=== PATIENT | female | born 1985 | race Caucasian/White ===

== ENCOUNTER 2017-04-12 09:38 | Emergency (ER) | payer OTHER ==
[~2017-04-12] VITALS: Ht 170.2 cm; Wt 74.2 kg
[~2017-04-12 09:38] MED LIST: AMOX875 PO
[2017-04-12 09:53] VITALS: BP 121/77; PULSE 75; RESP 16; TEMP 97.4
[2017-04-12] MEDS ORDERED: SODIUM CHLOR 0.9% 1000 ML INJ 1,000 ML IV SCH (10:16)
--- NOTE | 2017-04-12 10:16 | PD ---
HPI Chief Complaint: GI Complaint Time Seen by Provider: 10:13 Travel History International Travel<30 days: No Contact w/Intl Traveler<30days: No Traveled to known affect area: No History of Present Illness HPI c/o upper abdominal pain, rated about a 7 out of 10 to as much as 10 out of 10. Associated with nausea and vomiting which started last night. pt states the last episode of emesis that she saw some red flecks which she has seen before when she vomits blood. Patient states that this is her usual symptoms whenever she has a flareup of her gastroparesis or ulcer disease. No known drug allergy Patient has a past medical history significant for gastroparesis ulcer disease GERD and multiple endoscopies. PFSH Past Medical History Gastrointestinal Disorders: Yes (GASTROPARESIS) GERD: Yes Immunizations Current: Yes Ulcer: Yes ?: Not LMP: 2 weeks ago : 2 Para: 1 Miscarriage: 1 : 0 Past Surgical History Other Surgery: Yes (ENDOSCOPIES X 9) Social History Alcohol Use: Yes (rarely) Tobacco Use: No Substance Use: No Allergies-Medications (Allergen,Severity, Reaction): Coded Allergies: No Known Allergies (Unverified Adverse Reaction, Unknown, 04/12/17) Reported Meds & Prescriptions Reported Meds & Active Scripts Active No Active Prescriptions or Reported Medications Review of Systems General / Constitutional: No: Fever Eyes: No: Visual changes HENT: No: Headaches Cardiovascular: No: Chest Pain or Discomfort Respiratory: No: Shortness of Breath Gastrointestinal: Positive: Nausea, Vomiting, Abdominal Pain Genitourinary: No: Dysuria Musculoskeletal: No: Pain Skin: No Rash Neurologic: No: Weakness Psychiatric: No: Depression Endocrine: No: Polydipsia Hematologic/Lymphatic: No: Easy Bruising Physical Exam Narrative GENERAL: SKIN: Warm and dry. HEAD: Atraumatic. Normocephalic. EYES: Pupils equal and round. No scleral icterus. No injection or drainage. ENT: No nasal bleeding or discharge. Mucous membranes pink and moist. NECK: Trachea midline. No JVD. CARDIOVASCULAR: Regular rate and rhythm. RESPIRATORY: No accessory muscle use. Clear to auscultation. Breath sounds equal bilaterally. GASTROINTESTINAL: Abdomen soft, epigastric mildly tender to palpation , nondistended. MUSCULOSKELETAL: Extremities without clubbing, cyanosis, or edema. No obvious deformities. NEUROLOGICAL: Awake and alert. No obvious cranial nerve deficits. Motor grossly within normal limits. Five out of 5 muscle strength in the arms and legs. Normal speech. PSYCHIATRIC: Appropriate mood and affect; insight and judgment normal. Data Data Last Documented VS Vital Signs Date Time Temp Pulse Resp B/P (MAP) Pulse Ox O2 Delivery O2 Flow Rate FiO2 04/12/17 12:16 69 107/65 (79) 100 04/12/17 09:53 97.4 16 Orders Orders Complete Blood Count With Diff (04/12/17 10:16) Comprehensive Metabolic Panel (04/12/17 10:16) Lipase (04/12/17 10:16) Prothrombin Time / Inr (Pt) (04/12/17 10:16) Act Partial Throm Time (Ptt) (04/12/17 10:16) Ct Abd/Pel W/O Iv Contrast (04/12/17 10:16) Iv Access Insert/Monitor (04/12/17 10:16) Ecg Monitoring (04/12/17 10:16) Oximetry (04/12/17 10:16) NPO (04/12/17 10:16) Morphine Inj (Morphine Inj) (04/12/17 10:30) Ondansetron Inj (Zofran Inj) (04/12/17 10:30) Pantoprazole Inj (Protonix Inj) (04/12/17 10:30) Sodium Chlor 0.9% 1000 Ml Inj (Ns 1000 M (04/12/17 10:16) Al-Mag Hy-Si 40-40-4 Mg/Ml Liq (Mag-Al P (04/12/17 10:30) Lidocaine 2% Viscous (Xylocaine 2% Visco (04/12/17 10:30) Metoclopramide Inj (Reglan Inj) (04/12/17 11:45) Promethazine Inj (Phenergan Inj) (04/12/17 11:45) Labs Laboratory Tests Test 04/12/17 10:54 04/12/17 11:38 Prothrombin Time 11.0 SEC Prothromb Time International Ratio 1.1 RATIO Activated Partial Thromboplast Time 23.1 SEC Blood Urea Nitrogen 9 MG/DL Creatinine 0.81 MG/DL Random Glucose 140 MG/DL Total Protein 8.3 GM/DL Albumin 4.0 GM/DL Calcium Level 8.4 MG/DL Alkaline Phosphatase 74 U/L Aspartate Amino Transf (AST/SGOT) 31 U/L Alanine Aminotransferase (ALT/SGPT) 27 U/L Total Bilirubin 0.4 MG/DL Sodium Level 139 MEQ/L Potassium Level 4.3 MEQ/L Chloride Level 108 MEQ/L Carbon Dioxide Level 22.7 MEQ/L Anion Gap 8 MEQ/L Estimat Glomerular Filtration Rate 81 ML/MIN Lipase 173 U/L White Blood Count 23.4 TH/MM3 Red Blood Count 4.04 MIL/MM3 Hemoglobin 13.7 GM/DL Hematocrit 37.6 % Mean Corpuscular Volume 93.1 FL Mean Corpuscular Hemoglobin 33.9 PG Mean Corpuscular Hemoglobin Concent 36.5 % Red Cell Distribution Width 12.6 % Platelet Count 256 TH/MM3 Mean Platelet Volume 8.1 FL Neutrophils (%) (Auto) 87.0 % Lymphocytes (%) (Auto) 7.7 % Monocytes (%) (Auto) 3.2 % Eosinophils (%) (Auto) 0.1 % Basophils (%) (Auto) 2.0 % Neutrophils # (Auto) 20.4 TH/MM3 Lymphocytes # (Auto) 1.8 TH/MM3 Monocytes # (Auto) 0.7 TH/MM3 Eosinophils # (Auto) 0.0 TH/MM3 Basophils # (Auto) 0.5 TH/MM3 CBC Comment AUTO DIFF Differential Comment AUTO DIFF CONFIRMED MDM Medical Decision Making Medical Screen Exam Complete: Yes Emergency Medical Condition: Yes Medical Record Reviewed: Yes Differential Diagnosis Perforated ulcer versus ulcer disease versus dyspepsia versus hepatitis versus pancreatitis versus colitis versus diverticulitis Narrative Course Patient has leukocytosis of 23,000, no anemia, normal platelet count. Does show mild neutrophilia/left shift of 87% Coagulation profile is within normal limits Complete metabolic profile shows normal electrolytes, normal kidney function, normal liver function tests, normal lipase. CT scan shows Peptic ulcer disease is most likely diagnostic at this present time, patient is now tolerating p.o., she has been resting comfortably. And is currently awaiting the CT results. If the CT result is negative for any free air or any evidence of SBO or ileus patient will be discharged home. With the recommendation to follow-up with her primary and specialist. AT 1255 CT ABD/PELVIS PER RADIOLOGIST no free fluid no free air, hiatal hernia, and thickening of the distal esophagus seen circumferentially suspected for esophagitis. Diagnosis Primary Impression: Dyspeptic syndrome Additional Impression: Hiatal hernia with GERD and esophagitis Referrals: Azeem Sharp MD OR YOUR OWN TIRE MAKER FOR FURTHER CARE OF YOUR HIATAL HERNIA AND ESOPHAGITIS Patient Instructions: Esophagitis (ED), General Instructions, Hiatal Hernia (ED ) Scripts Promethazine Supp (Phenergan Supp) 25 Mg Supp 25 MG RECTAL Q6H Y for NAUSEA OR VOMITING, #6 SUPP 0 Refills Prov: Joel Al MD 04/12/17 Sucralfate (Carafate) 1 Gram Tab 1 GM PO TID for Ulcer Prevention, #90 TAB 0 Refills On empty stomach Prov: Joel Al MD 04/12/17 Lansoprazole (Prevacid) 30 Mg Capdr 30 MG PO DAILY for 30 Days, #30 CAP 3 Refills Prov: Joel Al MD 04/12/17 Disposition: 01 DISCHARGE HOME Condition: Stable Joel Al MD Apr 12, 2017 10:16
[2017-04-12] MEDS ORDERED: ONDANSETRON HCL 4 MG/2 ML VIAL IVP ONE (10:30)
[2017-04-12] MEDS ORDERED: ALUMINUM/MAGNESIUM/SIMETH 30 ML CUP PO ONE (10:30)
[2017-04-12] MEDS ORDERED: LIDOCAINE VISCOUS 2% SOLN 15 ML UDC PO ONE (10:30)
[2017-04-12] MEDS ORDERED: PANTOPRAZOLE SODIUM 40 MG VIAL IVP ONE (10:30)
[2017-04-12] MEDS ORDERED: MORPHINE SULFATE 4 MG/ML INJ IV PUSH ONE (10:30)
[2017-04-12 11:14] LABS: CHLORIDE 108 MEQ/L (98-107); SODIUM (NA) 139 MEQ/L (136-145)
[2017-04-12 11:18] VITALS: BP 113/86; PULSE 66; O2SAT 100
[2017-04-12 11:18] LABS: BICARBONATE 22.7 MEQ/L (21.0-32.0); CALCIUM 8.4 MG/DL (8.5-10.1); GLUCOSE,RANDOM 140 MG/DL (74-106); INTERNATIONAL NORMALIZED RATIO 1.1 RATIO
[2017-04-12 11:19] LABS: BLOOD UREA NITROGEN 9 MG/DL (7-18)
[2017-04-12 11:21] LABS: ALT (GPT) 27 U/L (10-53); AST (GOT) 31 U/L (15-37); CREATININE 0.81 MG/DL (0.50-1.00); GLOMERULAR FILTRATION RATE 81 ML/MIN (>89)
[2017-04-12 11:23] LABS: TOTAL BILIRUBIN ADULT 0.4 MG/DL (0.2-1.0); TOTAL PROTEIN 8.3 GM/DL (6.4-8.2)
[2017-04-12 11:24] LABS: ALKALINE PHOSPHATASE 74 U/L (45-117)
[2017-04-12] MEDS ORDERED: PROMETHAZINE INJ 25 MG/ML VIAL IM ONE (11:45)
[2017-04-12] MEDS ORDERED: METOCLOPRAMIDE HCL 10 MG/2 ML VIAL IV PUSH ONE (11:45)
[2017-04-12 11:47] LABS: AUTOMATED NEUTROPHIL # 20.4 TH/MM3 (1.8-7.7); BASOPHIL # 0.5 TH/MM3 (0-0.2); EOSINOPHIL % 0.1 % (0.0-4.0); HEMATOCRIT 37.6 % (35.0-46.0); HEMOGLOBIN 13.7 GM/DL (11.6-15.3); LYMPH % 7.7 % (9.0-44.0); LYMPHOCYTE # 1.8 TH/MM3 (1.0-4.8); MEAN CELL VOLUME 93.1 FL (80.0-100.0); MEAN CORPUSCULAR HEMOGLOBIN 33.9 PG (27.0-34.0); MEAN PLATELET VOLUME 8.1 FL (7.0-11.0); MONO % 3.2 % (0.0-8.0); MONOCYTE # 0.7 TH/MM3 (0-0.9); PLATELET COUNT 256 TH/MM3 (150-450); RED BLOOD COUNT 4.04 MIL/MM3 (4.00-5.30); RED CELL DISTRIBUTION WIDTH 12.6 % (11.6-17.2); WHITE BLOOD COUNT 23.4 TH/MM3 (4.0-11.0)
[2017-04-12 11:49] LABS: MEAN CORPUSCULAR HGB CONC 36.5 % (32.0-36.0)
[2017-04-12 12:16] VITALS: BP 107/65; PULSE 69; O2SAT 100
--- NOTE | 2017-04-12 12:38 | RADRPT ---
EXAM DATE/TIME: 04/12/2017 12:22 [facility] COMPARISON: No previous studies available for comparison. INDICATIONS : Vomiting blood since last night. Nausea.History of ulcer. Evaluate for free air. ORAL CONTRAST: No oral contrast ingested. RADIATION DOSE: 12.85 CTDIvol (mGy) MEDICAL HISTORY : Ulcers. Gastroparesis. SURGICAL HISTORY : None. ENCOUNTER: Initial ACUITY: 2 days PAIN SCALE: 0/10 LOCATION: abdomen TECHNIQUE: Volumetric scanning of the abdomen and pelvis was performed. Using automated exposure control and ad justment of the mA and/or kV according to patient size, radiation dose was kept as low as reasonably achievable to obtain optimal diagnostic quality images. DICOM format image data is available electro nically for review and comparison. FINDINGS: Liver, gallbladder, kidneys, spleen, pancreas, adrenals, urinary bladder, uterus, ovaries, small mary l and large bowel are unremarkable. No adenopathy or aneurysm. There is no free fluid or free air nahid ntified. The appendix is normal. The osseous structures are intact. There is a sliding hiatal hernia and circumferential thickening of the distal esophagus. CONCLUSION: 1. Hiatal hernia and thickening of the distal esophagus seen circumferentially suspect for esophagiti s. 2. No free fluid or free air are identified. Polo Gupta MD on April 12, 2017 at 12:34 Board Certified Radiologist. This report was verified electronically.
[2017-04-12] MEDS ORDERED: PROM1SUP7 RECTAL (13:01)
[2017-04-12] MEDS ORDERED: PREV30CA36 PO (13:01)
[2017-04-12] MEDS ORDERED: CARA1TAB6 PO (13:01)
== END 2017-04-12 13:43 | disposition home or self-care (01) ==
LOC: PHED 09:38
DX: K30 Functional dyspepsia (principal); K44.9 Diaphragmatic hernia without obstruction or gangrene; K21.0 Gastro-esophageal reflux disease with esophagitis
CPT/HCPCS: 74176; 80053; 83690; 85025; 85610; 85730; 96361; 96372; 96374; 96375; 99284; C9113; J2270; J2405; J2550; J2765; J7030